=== PATIENT | female | born 1985 | race Caucasian/White ===

== ENCOUNTER 2019-08-03 09:58 | Observation (INO) ==
[2019-08-03] MEDS ORDERED: Sodium Chloride 0.9% 1,000 ML PRIMARY IV ONE (10:47)
[2019-08-03 11:01] LABS: BLOOD UREA NITROGEN 11 mg/dL (7-22); BUN/CREATININE RATIO 15.71 (6-20); SERUM ALBUMIN 3.9 g/dL (3.5-4.8)
[2019-08-03 11:14] LABS: Hematocrit [HCT] 42.8 % (37.0-47.0); Hemoglobin [HGB] 14.4 g/dL (12.0-16.0); MEAN CORPUSCULAR HGB CONC 33.5 g/dL (33-37); MEAN CORPUSCULAR VOLUME 99 FL (81-99); RED BLOOD COUNT 4.32 10^6/uL (4.20-5.40)
[2019-08-03 11:15] LABS: BASOPHILS % (AUTO) 0.7 % (0-1); MEAN PLATELET VOLUME 7.9 FL (7.4-12.2); MONOCYTES % (AUTO) 4.3 % (5-15); NEUTROPHILS % (AUTO) 84.6 % (50-80); PLATELET MORPHOLOGY COMMENT NORMAL MORPHOLOGY (NORM); RBC MORPHOLOGY COMMENT NORMAL MORPHOLOGY (NORM); WBC MORPHOLOGY COMMENT NORMAL MORPHOLOGY (NORM)
[2019-08-03 11:16] LABS: BASOPHILS # (AUTO) 0.15 10*3/UL; EOSINOPHILS # (AUTO) 0.21 10*3/UL; LYMPHOCYTES # (AUTO) 2.01 10*3/uL; MONOCYTES # (AUTO) 0.92 10*3/UL (0.3-0.8); NEUTROPHILS # (AUTO) 18.07 10*3/UL
[2019-08-03] MEDS ORDERED: Prochlorperazine Edisylate Inj 10mg/2ml vial IVP ONE (11:20)
[2019-08-03] MEDS ORDERED: diphenhydrAMINE 50 MG/1 ML VIAL IVP ONE (11:20)
[2019-08-03] MEDS ORDERED: cefTRIAXone Inj 1 GM in Sodium Chloride 0.9% 100 ML IV ONE (13:33)
[2019-08-03] MEDS ORDERED: Clindamycin 900mg (Premix) 900 MG/50 ML BAG IV ONE (13:34)
[2019-08-03] MEDS ORDERED: MIDAZOLAM HCL 2 MG/2 ML VIAL ONE (14:05)
[2019-08-03] MEDS ORDERED: fentaNYL Inj 100 MCG/2 ML VIAL ONE ×2 (14:05→14:48)
[2019-08-03] MEDS ORDERED: LIDOCAINE MPF 2% - 5 ML (20 MG/1 ML) ONE (14:07)
[2019-08-03] MEDS ORDERED: PROPOFOL 10 MG/1 ML (200 MG/20 ML) VIAL IV ONE (14:07)
[2019-08-03] MEDS ORDERED: Lactated Ringers 1,000 ML PRIMARY IV ONE (14:13)
[2019-08-03] MEDS ORDERED: DEXAMETHASONE PF 10 MG/1 ML VIAL ONE (15:09)
[2019-08-03] MEDS ORDERED: ONDANSETRON 4 MG/2 ML VIAL ONE (15:09)
[2019-08-03] MEDS ORDERED: KETOROLAC 15 MG/1 ML VIAL IVP PRN ×2 (15:43→16:54)
[2019-08-03] MEDS ORDERED: MORPHINE SULFATE 2 MG/1 ML IVP PRN ×2 (15:43→16:54)
[2019-08-03] MEDS ORDERED: HYDROcodone-APAP 7.5 MG-325 MG TABLET PO PRN (15:43)
[2019-08-03] MEDS ORDERED: ONDANSETRON 4 MG/2 ML VIAL IVP PRN (15:43)
[2019-08-03] MEDS ORDERED: CYCLOBENZAPRINE 10 MG TABLET PO PRN ×2 (15:45→16:54)
[2019-08-03] MEDS ORDERED: Lactated Ringers 1,000 ML PRIMARY IV SCH (15:45)
[2019-08-03] MEDS ORDERED: MORPHINE SULFATE 2 MG/1 ML ONE (16:09)
[2019-08-03] MEDS ORDERED: KETOROLAC 15 MG/1 ML VIAL ONE (16:17)
[2019-08-03] MEDS: Lactated Ringers 1,000 ML PRIMARY IV SCH (17:38)
[2019-08-03] MEDS: HYDROcodone-APAP 7.5 MG-325 MG TABLET PO PRN (17:47)
[2019-08-03] MEDS: ONDANSETRON 4 MG/2 ML VIAL IVP PRN ×2 (18:38→22:39)
[2019-08-03 19:24] VITALS: RESP 16
[2019-08-03] MEDS ORDERED: AMITRIPTYLINE 25 MG TABLET PO SCH ×2 (21:00)
[2019-08-03 23:42] VITALS: O2SAT 95
[2019-08-04] MEDS: Lactated Ringers 1,000 ML PRIMARY IV SCH (02:55)
[2019-08-04] MEDS: HYDROcodone-APAP 7.5 MG-325 MG TABLET PO PRN ×2 (02:59→08:16)
[2019-08-04 04:00] VITALS: TEMP 97.4
[2019-08-04 04:50] LABS: Hematocrit [HCT] 35.5 % (37.0-47.0); MEAN CORPUSCULAR HGB CONC 33.7 g/dL (33-37); MEAN CORPUSCULAR VOLUME 98 FL (81-99); RED BLOOD COUNT 3.61 10^6/uL (4.20-5.40)
[2019-08-04 04:51] LABS: BASOPHILS # (AUTO) 0.06 10*3/UL; BASOPHILS % (AUTO) 0.4 % (0-1); EOSINOPHILS # (AUTO) 0.11 10*3/UL; EOSINOPHILS % (AUTO) 0.8 % (0-8); LYMPHOCYTES # (AUTO) 1.66 10*3/uL; MEAN PLATELET VOLUME 7.9 FL (7.4-12.2); MONOCYTES # (AUTO) 0.56 10*3/UL (0.3-0.8); NEUTROPHILS # (AUTO) 11.54 10*3/UL; NEUTROPHILS % (AUTO) 82.9 % (50-80); PLATELET MORPHOLOGY COMMENT NORMAL MORPHOLOGY (NORM); RBC MORPHOLOGY COMMENT NORMAL MORPHOLOGY (NORM); WBC MORPHOLOGY COMMENT NORMAL MORPHOLOGY (NORM)
[2019-08-04] MEDS ORDERED: Ertapenem Inj 1 GM in Sodium Chloride 0.9% 100 ML IV SCH (08:00)
[2019-08-04 08:22] VITALS: BP 136/79
[2019-08-04] MEDS: ONDANSETRON 4 MG/2 ML VIAL IVP PRN (09:01)
== END 2019-08-04 10:10 | disposition home or self-care (01) ==
LOC: ER 09:58 → MED/SURG 15:13 → OR 15:13 → OPS 15:23
PROVIDERS: ADMIT Surgery; ATTEND Surgery